=== PATIENT | male | born 1985 | race Caucasian/White ===

== ENCOUNTER → 2020-02-01 | Outpatient (CLI) | payer BC ==
--- NOTE | 2020-02-01 09:22 | US ---
EXAMINATION TYPE: US abdomen complete DATE OF EXAM: 02/01/2020 COMPARISON: NONE CLINICAL HISTORY: Unspecified abd Pain R10.9. EXAM MEASUREMENTS: Liver Length: 16.4 cm Gallbladder Wall: 0.2 cm CBD: 0.1 cm Spleen: 9.8 cm Right Kidney: 11.8 x 4.5 x 4.7 cm Left Kidney: 11.9 x 5.2 x 5.0 cm Pancreas: partially obscured by bowel gas, portions visualized wnl Liver: Increased attenuation, decreased visualization of vessels suggestive of fatty infiltrate Gallbladder: wnl Evidence for sonographic Youngblood's sign: no CBD: wnl Spleen: wnl Right Kidney: wnl Left Kidney: moderate hydro Upper IVC: very limited visualization Abd Aorta: proximal portions obscured by bowel gas, portions visualized wnl The visualized liver is slightly heterogeneously hyperechoic. The intrahepatic portion of the IVC a nd visualized abdominal aorta are within normal limits. There is no evidence of cholelithiasis. Com mon bile duct is unremarkable. The visualized portions of the pancreas slightly heterogeneous. The spleen is unremarkable. Kidneys are symmetric and free of hydronephrosis. No renal lesions are seen . IMPRESSION: Suboptimal study. Probable mild or early diffuse fatty infiltration of liver. There is fa irly moderate to severe left-sided pyelocaliectasis felt present. Follow-up functional study such as nuclear medicine, IVP, or contrast enhanced CT is advised to better evaluate and characterize.
== END | disposition home or self-care (01) ==
LOC: RADUSWWP 08:06
PROVIDERS: ATTEND Nurse Practitioner Family
DX: N13.30 Unspecified hydronephrosis (principal)
CPT/HCPCS: 76700

== ENCOUNTER 2022-07-14 08:14 | Emergency (ER) | payer BC ==
[2022-07-14 08:24] VITALS: RESP 18; TEMP 98.2
--- NOTE | 2022-07-14 09:00 | ED ---
URI HPI - General Chief Complaint: Upper Respiratory Infection Stated Complaint: URI Time Seen by Provider: 07/14/22 08:32 Source: patient, RN notes reviewed Mode of arrival: ambulatory Limitations: no limitations - History of Present Illness Initial Comments: 37 year old male with no significant past medical history coming in for flu-like symptoms x 3 weeks. He was seen at [facility] and was given Amoxicillin which did not help. He reports productive cough and sore throat have gotten worse. He denies known fever, chills, CP, SOB, abdominal pain, N/V/D. Denies recent sick contacts, was not vaccinated against Flu/COVID. Reports negative COVID at home test. - Related Data Allergies Allergy/AdvReac Type Severity Reaction Status Date / Time No Known Allergies Allergy Verified 07/14/22 08:24 Review of Systems ROS Statement: Those systems with pertinent positive or pertinent negative responses have been documented in the HPI. ROS Other: All systems not noted in ROS Statement are negative. Past Medical History Past Medical History: Unable to Obtain History of Any Multi-Drug Resistant Organisms: None Reported Past Surgical History: Unable to Obtain Past Psychological History: No Psychological Hx Reported Smoking Status: Current every day smoker Past Alcohol Use History: Occasional Past Drug Use History: Marijuana General Exam Limitations: no limitations General appearance: alert, in no apparent distress Head exam: Present: atraumatic, normocephalic Eye exam: Present: normal appearance, PERRL ENT exam: Present: normal exam, mucous membranes moist Neck exam: Present: normal inspection. Absent: tenderness, meningismus, lymphadenopathy Respiratory exam: Present: normal lung sounds bilaterally. Absent: respiratory distress, wheezes, rales, rhonchi, stridor Cardiovascular Exam: Present: regular rate, normal rhythm, normal heart sounds. Absent: systolic murmur, diastolic murmur, rubs, gallop, clicks GI/Abdominal exam: Present: soft, normal bowel sounds. Absent: distended, tenderness, guarding, rebound, rigid Extremities exam: Present: normal inspection, full ROM, normal capillary refill. Absent: tenderness, pedal edema, joint swelling, calf tenderness Neurological exam: Present: alert, oriented X3, CN II-XII intact Skin exam: Present: warm, dry Course Vital Signs 07/14/22 08:20 Temperature 98.2 F Pulse Rate 88 Respiratory 18 Rate Blood Pressure 149/101 Medical Decision Making - Medical Decision Making 36-year-old male with no significant PMH coming in today for cough and sore throat, patient had x-ray done and tested for COVID and flu in the course of the ED. I interpreted his XRAY and lab results. CXR Results negative for plueritic process, COVID/Flu results negative. Patient is a-febrile, with essentially unremarkable physical exam. All results discussed, all questions answered. Discussed symptomatic relief with patient, increasing fluid intake and rotating between Tylenol and Motrin as needed. Patient encouraged to return to the ED if worsening symptoms of fever, chills, CP, SOB. - Lab Data Lab Results 07/14/22 07/14/22 Range/Units 09:05 09:05 Coronavirus (PCR) Not Detected (Not Detectd) Influenza Type A RNA Not Detected (Not Detectd) Influenza Type B (PCR) Not Detected (Not Detectd) Disposition Clinical Impression: Acute viral syndrome Disposition: HOME SELF-CARE Condition: Stable Instructions (If sedation given, give patient instructions): Upper Respiratory Infection (ED) Additional Instructions: Return to ED if symptoms worsen or persist. Is patient prescribed a controlled substance at d/c from ED?: No Referrals: None,Stated [Primary Care Provider] - 1-2 days Time of Disposition: 09:53
--- NOTE | 2022-07-14 09:13 | XR ---
EXAMINATION TYPE: XR chest 2V DATE OF EXAM: 07/14/2022 COMPARISON: NONE HISTORY: Cough. TECHNIQUE: Frontal and lateral views of the chest are obtained. FINDINGS: There is no suspicious focal air space opacity, pleural effusion, or pneumothorax seen. T he cardiac silhouette size is within normal limits. Old fracture of the posterolateral left fifth rib is noted. IMPRESSION: No acute pulmonary process.
[2022-07-14 10:28] VITALS: BP 128/76; PULSE 77
== END 2022-07-14 10:28 | disposition home or self-care (01) ==
LOC: EC 08:14
DX: B34.9 Viral infection, unspecified (principal); F17.200 Nicotine dependence, unspecified, uncomplicated; F12.90 Cannabis use, unspecified, uncomplicated; Z20.822 Contact with and (suspected) exposure to COVID-19
CPT/HCPCS: 71046; 87502; 87635; 99283